=== PATIENT | male | born 1980 | race African-American/Black ===

== ENCOUNTER → 2017-04-02 | Outpatient (CLI) | payer MEDICAID ==
[~2017-04-02] MED LIST: ALBUTEROL SULF 2.5 MG/0.5ML(0.5%) NEB SOLN ONE; CHOL20002 PO; DOXE10CA PO; FERR324T4 PO; FLUO-125 PO; LITH300C3 PO; OMEP20CA5 OR; PULMICORT FLEXHALER IN
== END | disposition home or self-care (01) ==
LOC: RT 08:31
PROVIDERS: ATTEND Internal Medicine Pulmonary Disease
DX: J45.909 Unspecified asthma, uncomplicated (principal)
CPT/HCPCS: 94060; 94640